=== PATIENT | male | born 1945 | race Caucasian/White ===

== ENCOUNTER → 2017-07-10 10:22 | Outpatient (CLI) | payer MEDICARE, SELFPAY ==
--- NOTE | 2017-07-10 | LES_PTH ---
PATIENT: TIFFANIE AGUILAR LOC: [place] U#:[id number] AGE/SX: 80/M ROOM: RE07/10/[address]: Dr. Chet Hernández MD : 1945 BED: DIS: SPEC #: [id number] RECD: 07/11/17 09:56 STATUS: BRET CHERI #: [id number] JUAN ANTONIO: 07/10/17 00:[address]: Chet Hernández DEPT: SURGICAL PATHOLOGY RECD BY: Viet Brunson Tissues: Skin of arm Procedures: Surgery Specimen Level IV HEADER OPERATION: Excision nevus PRE-OP DIAGNOSIS: Rule out melanoma TISSUE SUBMITTED: Left arm MICROSCOPIC DIAGNOSIS Skin lesion of left arm, biopsy: Pigmented seborrheic keratosis. Solar elastosis. No evidence of malignancy. AM:casey 07/12/17 COMMENT Case has been reviewed in consultation with Dr. Sims who concurs with the above diagnosis. IDC:SJ MICROSCOPIC DESCRIPTION Slides are reviewed. GROSS DESCRIPTION Received in fixative is one container labeled with the patient's name and designated left arm. The specimen consists of a light forbes excised skin fragment measuring 0.5 x 0.5 x 0.3 cm. The specimen is inked, bisected and totally submitted in one cassette. / AM:casey 07/11/17 TC:3 [facility]: [id number]
== END ==
PROVIDERS: Family Provider Family Medicine; PCP Family Medicine; Visit Provider Family Medicine
DX: L82.1 Other seborrheic keratosis (principal); L57.8 Other skin changes due to chronic exposure to nonionizing radiation
CPT/HCPCS: 88305

== ENCOUNTER 2017-08-01 13:00 | Outpatient (RCR) | payer MEDICARE, SELFPAY ==
--- NOTE | 2017-06-27 12:46 | HP.PTEVAL_ITS ---
Patient's Visit Information TIFFANIE AGUILAR is a 72 year old M referred to Physical Therapy by Chet WEINSTEIN with a diagnosis of cervical DDD. Date of Evaluation: 06/27/17 Physical Therapist: Amador Hackett - Visit Plan Frequency: 1-2x /Week Duration: 4 Weeks Plan: Start with SNAGs cervical motions, gental cervical distraction, bilateral UT and levator scapulea stretching. Add in pec stretching progressing to postural strengthening. May use US/IFC for pain management PRN. - Subjective Subjective: Pt. is here today for his initial evaluation with diagnosis of cervical DDD. He reports having popping symptoms in neck with pain radiating down his R arm to fingers at times. Pt. reports popping in his neck with cervical rotation, but has increased pain with lying down his R UE to finger level intermittently. Pt. denies N/T currently and no sudden weakness. Pt. reports no mechanism of injury, but as gradual onset over the last 3 months. Pt. reprots no pain currently, but has difficulty with cervical rotation, it pops a lot. 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 He is hopeful to improve ROM and decrease occassional soreness allowing his to complete household and recreational activities with decreased symptoms. - Pain cervical spine Pain Intensity (Out of 10): 1 Pain Intensity Range: 0, 4 R UE Pain Intensity (Out of 10): 0 Pain Intensity Range: 0, 6 Comment: while sleeping, wakes him up at night - Objective POSTURE: Pt. has FH positioning, rounded shoulders, protracted scapulea bilaterally. He also has increased lower cervical felxion with increarsed upper cervical extension. PALPATION: Pt. has mild tenderness at LUT and L levator scapulea, no pain on R side of cervical spine. Pt. has no pain at bilateral sub occipitals or cervical spine musculature. Pt. did have mild increase NW symptoms with PA to C4-C7. NEUROLOGICAL: Pt. has no changes in sensation to light and sharp touch throughotu bilateral UEs. Pt. has 2+ biceps, triceps and brachial radialis DTR bilaterally. Pt. had negative upper limb tension testing as well. ROM: Pt. has full B shoulder ROM without increase in cervical spine symptoms. CERVICAL SPINE: flexion nil loss NE, ext mod loss stiffness, rotation R min loss increase NW on L side, rotation L mod loss increase L on L side. SB R mod loss increase NW on L side, SB R nil loss NE. MMT- Pt. has full bilateral shoulder strength without increase in symptoms. CERVICAL ISOMETRICS: Pt. has normal cervical spine isometrics without increase in symptoms. - Special Tests C/S Radiculapathy - Left Upper limb tension test: Negative C/S Radiculapathy - Right Upper limb tension test: Negative C/S Radiculapathy - Left Spurlings: Negative C/S Radiculapathy - Right Spurlings: Negative C/S Radiculapathy - Left Cervical distraction: Negative C/S Radiculapathy - Right Cervical distraction: Negative C/S Radiculapathy - Left Relief test: Negative C/S Radiculapathy - Right Relief test: Negative C/S Radiculapathy - Valsalva: Negative Sharp John: Negative Vertebral Artery Test: Negative Alar Ligament Test: Negative Cervical Sitting: Protrusion - Mechanical Response: No effect Cervical Sitting: Protrusion - Symptoms During Testing: No effect Cervical Sitting: Protrusion - Symptoms After Testing: No effect Cervical Sitting: Retraction - Mechanical Response: No effect Cervical Sitting: Retraction - Symptoms During Testing: No effect Cervical Sitting: Retraction - Symptoms After Testing: No worse Cervical Sitting: Retraction-Extension - Mechanical Response: No effect Cerv Sitting: Retraction-Extension - Symptoms During Testing: Increases Cerv Sitting: Retraction-Extension - Symptoms After Testing: No worse Cervical Sitting: Sidebend Right - Mechanical Response: No effect Cervical Sitting: Sidebend Right - Symptoms During Testing: Increases Cervical Sitting: Sidebend Right - Symptoms After Testing: No worse Cervical Sitting: Sidebend Left - Mechanical Response: No effect Cervical Sitting: Sidebend Left - Symptoms During Testing: No effect Cervical Sitting: Sidebend Left - Symptoms After Testing: No effect Cervical Sitting: Rotation Right - Mechanical Response: No effect Cervical Sitting: Rotation Right - Symptoms During Testing: Increases Cervical Sitting: Rotation Right - Symptoms After Testing: No worse Cervical Sitting: Rotation Left - Mechanical Response: No effect Cervical Sitting: Rotation Left - Symptoms During Testing: No effect Cervical Sitting: Rotation Left - Symptoms After Testing: No effect Cervical Sitting: Flexion - Mechanical Response: No effect Cervical Sitting: Flexion - Symptoms During Testing: No effect Cervical Sitting: Flexion - Symptoms After Testing: No effect - Goals Goal 1:: Pt. to be I with HEP. Goal 2:: Pt. to have no issues with sleeping allowing for increased quality of life. Goal Time Frame: 4-6 Weeks Goal 3:: Pt. to have increased cervical ROM by 25% in all directions without increase in symptoms. Goal Time Frame: 4-6 Weeks Goal 4:: Pt. to resume chopping wood and driving without limitations or increase in symptoms. Goal Time Frame: 4-6 Weeks Goal 5:: Pt. to maintain improved posture throughout therapy session indicating increased postural awareness. Goal Time Frame: 4-6 Weeks - Rehabilitation Potential Physical Therapy Diagnosis: Pt. has signs and symptoms consistent with cervical DDD resulting in cervical hypombility and crepitus. He reports having R UE radiating pain, but was unable to reproduce this date. He would benefit from PT to increase ROM, decrease pain and improve posture in order to reduce stress applied to cervical spine with all functional mobility. Rehabilitation Potential: Good - Anticipated Interventions Patient/Client Instruction: Educate patient on: Condition, Plan of Care, Risk Factors, Benefits of Fitness Program For the Purpose of:: To improve decision making, To facilitate caregiver knowledge, To improve self management, To prevent re-injury, To improve ability to perform tasks related to life management, To improve tolerance to ADL's Therapeutic Exercise to Include: Strength training, Power training, Postural training, Flexibilty training, Passive ROM, Active ROM, Eddie Exercises, Scapular Strength/Stabilization For the Purpose of:: To decrease pain, To increase ROM, To improve nutrient delivery to tissue, To increase oxygenation perfusion, To improve muscle performance and motor function, To increase tolerance to activity/condition/ position, To improve health of tissue, To decrease soft tissue restriction, To increase flexibility/ROM Manual Therapy Techniques to Include: Mobilization, Passive ROM, Functional dry needling, Soft tissue mobilization For the Purpose of:: To decrease pain, To increase ROM, To improve nutrient delivery to tissue, To increase oxygenation perfusion, To improve muscle performance and motor function, To improve ability to perform ADL's, To improve health of tissue, To decrease soft tissue restriction, To increase flexibility/ ROM IF ES: Yes Cryotherapy (ice pack, ice massage): Yes Ultrasound (thermal/non thermal): Yes For the Purpose of:: To decrease pain, To increase ROM, To improve nutrient delivery to tissue, To increase oxygenation perfusion, To improve muscle performance and motor function, To improve ability to perform ADL's Thank you for the opportunity to evaluate your patient. For Medicare and Medicare HMO plans, please review the plan of care and approve it. It will need to be FAXED BACK to us at [phone] for Medicare purposes. Please let me know if there are questions or concerns regarding this plan of care. Physician Signature: Date:
--- NOTE | 2017-08-02 13:21 | HP.PTDCSUM ---
HP - PT D/C Summary It has been my pleasure to treat TIFFANIE AGUILAR under orders from DR.CRANNE Kofi for the diagnosis of cervical DDD for a total of 5 visit(s). Discharge Date: 08/01/17 Please see the following information for a summary of their discharge status. - Subjective Subjective: Pt. reports I am doing prett well. Pt. reports that his neck has been moving very well and that as long as he stays active his symptoms are minimal. Pt. reports being HEP compliant. - Pain cervical spine Pain Intensity (Out of 10): 0 R UE Pain Intensity (Out of 10): 0 - Overall Improvement % Improvement: 95 - Objective Objective/Function: Pt. tolerated all PT without adverse reaction. Pt. has progressed as expected. CERVICAL ROM: flexion- nil loss NE, rotation R nil loss NE, rotation L min/nil loss NE, ext min/nil loss NE. Shoulders- full without increase in symptoms. Pt. is back to sleeping and chopping wood without issues. Pt. is able to maintain improved posture throughout therapy and is able to complete while completing UE exercises. Pt. reports no pain throughout therapy session. - Goals Goal 1:: Pt. to be I with HEP. Goal Progress: Goal Met Goal 2:: Pt. to have no issues with sleeping allowing for increased quality of life. Goal Progress: Goal Met Goal 3:: Pt. to have increased cervical ROM by 25% in all directions without increase in symptoms. Goal Progress: Goal Met Goal 4:: Pt. to resume chopping wood and driving without limitations or increase in symptoms. Goal Progress: Goal Met Goal 5:: Pt. to maintain improved posture throughout therapy session indicating increased postural awareness. Goal Progress: Goal Met - Plan Plan: Pt. to be DC to HEP at this point in time. - D/C Information Discharge Comments: Pt. was treated with ultrasound, ROM, postural strengthening. He made progresss as expected. He was no longer having pain at time of DC. He does have slight limited cervical rotation to the left, but is progressing. Pt. is independent with postural strengthening and cervical ROM for his HEP. Pt. will be DC from PT at this point in time. If there are questions or concerns regarding this patient's physical therapy, please feel free to call me at [phone]. Thank you for the referral of this patient. Sincerely, Amador Hackett
== END 2017-08-01 19:00 | disposition home or self-care (01) ==
LOC: PT 13:00
PROVIDERS: Family Provider Family Medicine; PCP Family Medicine; Visit Provider Family Medicine
DX: M50.30 Other cervical disc degeneration, unspecified cervical region (principal)
CPT/HCPCS: 97035; 97110; 97140; 97161

== ENCOUNTER → 2018-09-24 | Outpatient (CLI) | payer MEDICARE, SELFPAY ==
[2016-05-11 10:25] VITALS: BMI 23.8
== END | disposition home or self-care (01) ==
LOC: LABSPEC 16:00
PROVIDERS: Family Provider Family Medicine; PCP Family Medicine; Visit Provider Nurse Practitioner Family
DX: N39.0 Urinary tract infection, site not specified (principal)
CPT/HCPCS: 87086; 87088; 87186

== ENCOUNTER → 2019-03-14 11:55 | Outpatient (CLI) | payer MEDICARE, SELFPAY ==
[2016-05-11 10:25] VITALS: BMI 23.8
[2019-03-14 15:35] LABS: Hematocrit 44.4 % (40-54); Hemoglobin 14.6 g/dL (13.0-16.5); Mean Corp Hgb Conc 32.9 g/dL (32-36); Mean Corpuscular Hgb 30.9 pg (27.0-32.0); Mean Corpuscular Volume 93.9 fL (80-94); Mean Platelet Vol. 10.4 fl (6.2-12.0); Platelet Count 206 K/mm3 (150-450); RBC Distribution Width CV 12.7 % (11.6-14.6); RBC Distribution Width SD 44.2 fl (35.1-43.9); Red Blood Count 4.73 M/mm3 (4.6-6.2); White Blood Count 5.6 K/mm3 (4.4-11.0)
[2019-03-14 16:00] LABS: ALB/GLOB Ratio 1.1 RATIO (0.9-2.4); AST(SGOT) 15 U/L (15-37); Alanine Aminotransfer ALT/SGPT 24 U/L (16-61); Albumin, Serum 3.9 g/dL (3.2-5.0); Alkaline Phosphatase 75 U/L (45-117); Anion Gap 4 (5-15); BUN 15 mg/dL (7-18); BUN/Creat Ratio 13.6 RATIO (10-20); Calcium,Total 8.9 mg/dL (8.5-10.1); Chloride 107 mmol/L (98-107); EST Glomerular Filtration Rate 70 mL/min (>60); Est Glom Filt Rate - Afr Amer 84 mL/min (>60); Globulin 3.5 g/dL (2.2-4.2); Glucose 87 mg/dL (74-106); PSA,Total - Annual Screen 5.17 ng/mL (0.00-4.00); Potassium 4.2 mmol/L (3.5-5.1); Protein, Total 7.4 g/dL (6.4-8.2); Sodium Level 139 mmol/L (136-145); Thyroid Stim Hormone (TSH) 1.03 uIU/mL (0.358-3.74)
== END ==
PROVIDERS: Family Provider Family Medicine; PCP Family Medicine; Referring Provider Family Medicine; Visit Provider Family Medicine
DX: I48.91 Unspecified atrial fibrillation (principal); N40.0 Benign prostatic hyperplasia without lower urinary tract symptoms; Z12.5 Encounter for screening for malignant neoplasm of prostate
CPT/HCPCS: 36415; 80053; 84153; 84443; 85027; G0103

== ENCOUNTER → 2019-09-19 16:45 | Outpatient (CLI) | payer MEDICARE, SELFPAY ==
[2019-09-21 14:04] LABS: PSA, Free 1.14 ng/mL; PSA, Free % 21.9 % (.); PSA, Total Ultrasensitive 5.2 ng/mL (0.0-4.0)
== END ==
PROVIDERS: PCP Family Medicine; Referring Provider Family Medicine; Visit Provider Family Medicine
DX: N40.0 Benign prostatic hyperplasia without lower urinary tract symptoms (principal)
CPT/HCPCS: 36415; 84153; 84154

== ENCOUNTER → 2020-03-16 09:13 | Outpatient (CLI) | payer MEDICARE, SELFPAY ==
[2016-05-11 10:25] VITALS: BMI 23.8
[2020-03-16 10:37] LABS: Anion Gap 7 (5-15); BUN 14 mg/dL (7-18); BUN/Creat Ratio 13.1 RATIO (10-20); Chloride 105 mmol/L (98-107); Cholesterol 216 mg/dL (200); Creatinine, Serum 1.07 mg/dL (0.70-1.30); EST Glomerular Filtration Rate 72 mL/min (>60); Est Glom Filt Rate - Afr Amer 87 mL/min (>60); Glucose 91 mg/dL (74-106); High Density Lipoprotein 71 mg/dL; PSA,Total- Diagnostic 4.37 ng/mL (0.0-4.0); Potassium 4.2 mmol/L (3.5-5.1); Sodium Level 140 mmol/L (136-145); Thyroid Stim Hormone (TSH) 0.96 uIU/mL (0.358-3.74); Triglycerides 74 mg/dL; Very Low Density Lipoprotein 15 mg/dL (5-40)
== END ==
PROVIDERS: PCP Family Medicine; Visit Provider Family Medicine
DX: I48.91 Unspecified atrial fibrillation (principal); R97.20 Elevated prostate specific antigen [PSA]
CPT/HCPCS: 36415; 80048; 80061; 84153; 84443

== ENCOUNTER → 2021-03-23 10:24 | Outpatient (CLI) | payer MEDICARE, SELFPAY ==
[2021-03-23 12:33] LABS: Anion Gap 8 (5-15); BUN 17 mg/dL (7-18); BUN/Creat Ratio 15.3 RATIO (10-20); Calcium,Total 8.6 mg/dL (8.5-10.1); Chloride 107 mmol/L (98-107); Cholesterol 223 mg/dL (200); Creatinine, Serum 1.11 mg/dL (0.70-1.30); EST Glomerular Filtration Rate 69 mL/min (>60); Est Glom Filt Rate - Afr Amer 83 mL/min (>60); Glucose 98 mg/dL (74-106); High Density Lipoprotein 54 mg/dL; PSA,Total - Annual Screen 3.59 ng/mL (0.00-4.00); Potassium 4.1 mmol/L (3.5-5.1); Sodium Level 140 mmol/L (136-145); Triglycerides 74 mg/dL; Very Low Density Lipoprotein 15 mg/dL (5-40)
== END ==
PROVIDERS: PCP Family Medicine; Referring Provider Family Medicine; Visit Provider Family Medicine
DX: I48.91 Unspecified atrial fibrillation (principal); R97.20 Elevated prostate specific antigen [PSA]; Z13.220 Encounter for screening for lipoid disorders
CPT/HCPCS: 36415; 80048; 80061; 84153; G0103

== ENCOUNTER → 2021-05-26 10:16 | Outpatient (CLI) | payer MEDICARE, SELFPAY ==
[2021-05-26 12:40] LABS: Cholesterol 129 mg/dL (200); High Density Lipoprotein 51 mg/dL; Triglycerides 52 mg/dL; Very Low Density Lipoprotein 10 mg/dL (5-40)
== END ==
PROVIDERS: PCP Family Medicine; Referring Provider Family Medicine; Visit Provider Family Medicine
DX: E78.5 Hyperlipidemia, unspecified (principal)
CPT/HCPCS: 36415; 80061

== ENCOUNTER → 2022-03-28 | Outpatient (CLI) | payer MEDICARE, SELFPAY ==
[2022-03-28 12:38] LABS: ALB/GLOB Ratio 1.2 RATIO (0.9-2.4); AST(SGOT) 16 U/L (15-37); Alanine Aminotransfer ALT/SGPT 21 U/L (16-61); Albumin, Serum 3.5 g/dL (3.2-5.0); Alkaline Phosphatase 66 U/L (45-117); Anion Gap 9 (5-15); BUN 16 mg/dL (7-18); BUN/Creat Ratio 15.7 RATIO (10-20); Calcium,Total 8.8 mg/dL (8.5-10.1); Chloride 107 mmol/L (98-107); Cholesterol 122 mg/dL (200); Creatinine, Serum 1.02 mg/dL (0.70-1.30); EST Glomerular Filtration Rate 76 mL/min (>60); Est Glom Filt Rate - Afr Amer 91 mL/min (>60); Glucose 92 mg/dL (74-106); High Density Lipoprotein 55 mg/dL; PSA,Total- Diagnostic 3.04 ng/mL (0.0-4.0); Potassium 3.9 mmol/L (3.5-5.1); Protein, Total 6.5 g/dL (6.4-8.2); Sodium Level 139 mmol/L (136-145); Triglycerides 43 mg/dL; Very Low Density Lipoprotein 9 mg/dL (5-40)
== END | disposition home or self-care (01) ==
LOC: MFPLAB 09:38
PROVIDERS: PCP Family Medicine; Visit Provider Family Medicine
DX: E78.5 Hyperlipidemia, unspecified (principal); R97.20 Elevated prostate specific antigen [PSA]
CPT/HCPCS: 36415; 80053; 80061; 84153

== ENCOUNTER 2022-06-06 09:02 | Outpatient (CLI) | payer MEDICARE, SELFPAY ==
[2022-06-06 10:29] LABS: Absolute Lymphocyte Count 1.24 X10^3/uL (0.83-4.51); Absolute Neutrophil Count 3.3 X10^3/uL (2.0-7.7); Basophil# 0.04 X10^3/uL; Basophil% 0.8 % (0-1); Eosinophil# 0.15 X10^3/uL; Eosinophils% 2.8 % (0-5); Hematocrit 43.6 % (40-54); Hemoglobin 14.6 g/dL (13.0-16.5); Lymphocyte # 1.24 X10^3/ul (0.83-4.51); Lymphocyte % 23.3 % (19-41); Mean Corp Hgb Conc 33.5 g/dL (32-36); Mean Corpuscular Volume 95.6 fL (80-94); Mean Platelet Vol. 10.9 fl (6.2-12.0); Monocyte# 0.54 X10^3/uL; Monocyte% 10.1 % (0-10); NRBC Flagged by Analyzer 0 % (0-5); Neutrophil # 3.34 X10^3/uL (2.7-7.7); Neutrophil % 62.6 % (47-70); Platelet Count 193 K/mm3 (150-450); RBC Distribution Width CV 12.5 % (11.6-14.6); RBC Distribution Width SD 44.1 fl (35.1-43.9); Red Blood Count 4.56 M/mm3 (4.6-6.2); White Blood Count 5.3 K/mm3 (4.4-11.0)
[2022-06-06 10:36] LABS: Vitamin D,25 Hydroxy 18.6 ng/mL
[2022-06-06 10:37] LABS: Erythrocyte Sedimentation Rate 7 mm/hr (0-20)
[2022-06-06 11:20] LABS: ALB/GLOB Ratio 1.3 RATIO (0.9-2.4); AST(SGOT) 16 U/L (15-37); Alanine Aminotransfer ALT/SGPT 22 U/L (16-61); Albumin, Serum 3.8 g/dL (3.2-5.0); Alkaline Phosphatase 74 U/L (45-117); Anion Gap 10 (5-15); BUN 18 mg/dL (7-18); BUN/Creat Ratio 17.5 RATIO (10-20); Calcium,Total 8.8 mg/dL (8.5-10.1); Chloride 106 mmol/L (98-107); Creatinine, Serum 1.03 mg/dL (0.70-1.30); EST Glomerular Filtration Rate 75 mL/min (>60); Est Glom Filt Rate - Afr Amer 90 mL/min (>60); Glucose 95 mg/dL (74-106); Potassium 4.2 mmol/L (3.5-5.1); Prealbumin 20.8 mg/dL (20.0-40.0); Protein, Total 6.8 g/dL (6.4-8.2); Sodium Level 140 mmol/L (136-145); Thyroid Stim Hormone (TSH) 0.88 uIU/mL (0.358-3.74)
== END 2022-06-06 23:59 | disposition home or self-care (01) ==
LOC: MFPLAB 09:03
PROVIDERS: PCP Family Medicine; Visit Provider Family Medicine
DX: R63.4 Abnormal weight loss (principal); E55.9 Vitamin D deficiency, unspecified
CPT/HCPCS: 80053; 82306; 84134; 84443; 85025; 85652

== ENCOUNTER → 2023-03-30 | Outpatient (CLI) | payer MEDICARE, SELFPAY ==
[2023-03-30 10:32] LABS: ALB/GLOB Ratio 1.1 RATIO (0.9-2.4); AST(SGOT) 14 U/L (15-37); Alanine Aminotransfer ALT/SGPT 22 U/L (16-61); Albumin, Serum 3.6 g/dL (3.2-5.0); Alkaline Phosphatase 66 U/L (45-117); Anion Gap 6 (5-15); BUN 19 mg/dL (7-18); BUN/Creat Ratio 18.3 RATIO (10-20); Calcium,Total 8.9 mg/dL (8.5-10.1); Chloride 108 mmol/L (98-107); Cholesterol 140 mg/dL (200); Creatinine, Serum 1.04 mg/dL (0.70-1.30); EST Glomerular Filtration Rate 74 mL/min (>60); Est Glom Filt Rate - Afr Amer 89 mL/min (>60); Globulin 3.3 g/dL (2.2-4.2); Glucose 96 mg/dL (74-106); High Density Lipoprotein 57 mg/dL; PSA,Total - Annual Screen 3.75 ng/mL (0.00-4.00); Potassium 4.1 mmol/L (3.5-5.1); Protein, Total 6.9 g/dL (6.4-8.2); Sodium Level 139 mmol/L (136-145); Thyroid Stim Hormone (TSH) 1.35 uIU/mL (0.358-3.74); Triglycerides 56 mg/dL; Very Low Density Lipoprotein 11 mg/dL (5-40)
[2023-03-30 10:35] LABS: Vitamin D,25 Hydroxy 49.6 ng/mL
== END | disposition home or self-care (01) ==
LOC: MFPLAB 08:58
PROVIDERS: PCP Family Medicine; Visit Provider Family Medicine
DX: I48.91 Unspecified atrial fibrillation (principal); E78.5 Hyperlipidemia, unspecified; E55.9 Vitamin D deficiency, unspecified; N40.0 Benign prostatic hyperplasia without lower urinary tract symptoms; Z12.5 Encounter for screening for malignant neoplasm of prostate
CPT/HCPCS: 36415; 80053; 80061; 82306; 84153; 84443; G0103

== ENCOUNTER → 2024-04-02 | Outpatient (CLI) | payer MEDICARE, SELFPAY ==
[2024-04-02 12:35] LABS: Anion Gap 5 (5-15); BUN 15 mg/dL (7-18); BUN/Creat Ratio 15.9 RATIO (10-20); Calcium,Total 8.9 mg/dL (8.5-10.1); Chloride 110 mmol/L (98-107); Cholesterol 135 mg/dL (200); Creatinine, Serum 0.94 mg/dL (0.70-1.30); EST Glomerular Filtration Rate 82 mL/min (>60); Est Glom Filt Rate - Afr Amer 99 mL/min (>60); Glucose 89 mg/dL (74-106); High Density Lipoprotein 60 mg/dL; PSA,Total- Diagnostic 3.86 ng/mL (0.0-4.0); Potassium 4.4 mmol/L (3.5-5.1); Sodium Level 140 mmol/L (136-145); Thyroid Stim Hormone (TSH) 0.973 uIU/mL (0.358-3.740); Triglycerides 40 mg/dL; Very Low Density Lipoprotein 8 mg/dL (5-40)
[2024-04-02 16:16] LABS: Vitamin D,25 Hydroxy 37.8 ng/mL
== END | disposition home or self-care (01) ==
LOC: MFPLAB 10:03
PROVIDERS: PCP Family Medicine; Visit Provider Family Medicine
DX: I48.91 Unspecified atrial fibrillation (principal); R97.20 Elevated prostate specific antigen [PSA]; E55.9 Vitamin D deficiency, unspecified
CPT/HCPCS: 36415; 80048; 80061; 82306; 84153; 84443

== ENCOUNTER → 2024-11-04 | Outpatient (CLI) | payer MEDICARE, SELFPAY ==
[2024-11-04 11:02] LABS: PSA,Total- Diagnostic 4.17 ng/mL (0.00-4.00)
== END | disposition home or self-care (01) ==
LOC: LAB 09:46
PROVIDERS: PCP Family Medicine; Referring Provider Urology; Visit Provider Urology
DX: R97.20 Elevated prostate specific antigen [PSA] (principal)
CPT/HCPCS: 36415; 84153

== ENCOUNTER → 2025-03-31 | Outpatient (CLI) | payer MEDICARE, SELFPAY ==
[2025-03-31 12:39] LABS: Hematocrit 42.3 % (40-54); Hemoglobin 13.8 g/dL (13.0-16.5); Mean Corp Hgb Conc 32.6 g/dL (32-36); Mean Corpuscular Volume 94.6 fL (80-94); Mean Platelet Vol. 10.6 fl (6.2-12.0); Platelet Count 212 K/mm3 (150-450); RBC Distribution Width CV 12.6 % (11.6-14.6); RBC Distribution Width SD 43.8 fl (35.1-43.9); Red Blood Count 4.47 M/mm3 (4.6-6.2); White Blood Count 5.3 K/mm3 (4.4-11.0)
[2025-03-31 12:54] LABS: AST(SGOT) 17 U/L (<=37); Alanine Aminotransfer ALT/SGPT 14 U/L (<=46); Albumin, Serum 4.1 g/dL (3.4-4.8); Alkaline Phosphatase 71 U/L (40-129); Anion Gap 7 (5-15); BUN 15 mg/dL (4-19); BUN/Creat Ratio 13.9 RATIO (10-20); Calcium,Total 9.2 mg/dL (7.6-11.0); Carbon Dioxide 26.3 mmol/L (21.0-32.0); Chloride 105 mmol/L (98-108); Globulin 2.5 g/dL (2.2-4.2); Glucose 90 mg/dL (70-99); Magnesium 2.5 mg/dL (1.5-2.2); Potassium 4.5 mmol/L (3.3-5.1)
--- OUTSIDE RECORDS SUMMARY | 2025-03-31 13:19 | XMS RPT_ITS | CCD ---
Author Organization [facility] Care Team Providers Care Securities Teller Name Role Phone Betty MONTES, Dr. Rosenberg Primary Care Provider Aline MONTES, Dr. Flaquito Ashraf Attending Provider 1( [phone] Aline MONTES, Dr. Flaquito Ashraf Referring Provider 1( [phone] Chet Hernández Attending Unavailable Chet Hernández Primary Care Unavailable Flaquito Mireles Attending Unavailable Flaquito Mireles Referring Unavailable Chet Hernández Primary Care Unavailable Medications Current Medications Medication Drug Class(es) Dates Sig (Normalized) Sig (Original) acetaminophen 325 mg / oxyCODONE hydrochloride 5 mg oral tablet (3 sources) Opioid Agonist Start: 05-11-2016 Oxycodone-Acetamin ophen 1 TABLET tablet Active 1 - 2 {tbl} PO EVERY 4 HOURS NEEDED as needed for Pain 40 May 11, 2016 1:00am Start: 05-11-2016 take 1 tablet by cong th every four hours as needed Oxycodone-Acetaminophen Active 1 - 2 TABLET PO EVERY 4 HOURS NEEDED 40 May 11, 2016 12:00am aspirin 81 mg delayed release oral tablet (3 sources) Platelet Aggregation Inhibitor, Nonsteroidal Anti-inflammatory Drug Start: 05-10-2016 take 1 tablet by mouth once daily Aspirin 81 MG tablet Active 81 mg PO DAILY@0800 May 10, 2016 1:00am flecainide acetate 100 mg oral tablet (3 sources) Antiarrhythmic Start: 05-10-2016 take 1 tablet by mouth twice daily Flecainide 100 MG tablet Active 100 mg PO TWICE A DAY May 10, 2016 1:00am Problems Problem Classification Problem Date Documented Da te Episodic/Chronic Abdominal hernia (3 sources) Bilateral inguinal hernia; Translations: [Bilateral inguinal hernia, without obstruction or gangrene, not specified as recurrent] 05-11-2016 Episodic Cardiac dysrhythmias (1 source) Unspecified atrial fibrillation; Translations: [Unspecified atrial fibrillation] Onset: 04-24-2024 Chronic Other screening for suspected conditions (not mental disorders or infectious disease) (1 source) Elevated prostate specific antigen [PSA]; Translations: [Elevated prostate specific antigen [PSA]] Onset: 11-08-2024 Episodic Results Test Name Value Interpretation Reference Range Facility PSA,Total- Diagnosticon 06-0 PSA, DIAGNOSTIC 4.17 ng/mL High 0.00-4.00 [facility] Comment on above: Result Comment: This test was performed using the [employer] tPSA method. Measured values of a patient??sample can vary depending on the testing procedure used. PSA values determined on patient samples by different testing procedures cannot be used interchangeably. If there is a change in PSA assays while monitoring therapy, sequential testing should be performed to confirm baseline values. Performed By: #### L 501.9940 #### [facility] [address] [place], [place], [id number] Basic Metabolic Profile (BMP )on 04-02-2024 BUN/CRE 15.9 RATIO Normal 10-20 [facility] Comment on above: Order Comment: Order Date: 04/02/24 Order Info: 0667-1 - BMP Order Info: [id number] - LIPID Order Info: [id number] - TSH Order Info: [id number] - PSAD Performed By: #### L 501.9520, L500.4100, L500.2500, L506.1000, L501.9940 #### [facility] [address] [place], [address] CA,Total 8.9 mg/dL Normal 8.5-10.1 [facility] Comment on above: Order Comment: Order Date: 04/02/24 Order Info: [id number] - BMP Order Info: [id number] - LIPID Order Info: 3013 - TSH Order Info: [id number] - PSAD Performed By: #### L 501.9520, L500.4100, L500.2500, L506.1000, L501.9940 #### [facility] [address] [place], [address] Chloride [Moles/Vol] 110 mmol/L High 98-107 [facility] Comment on above: Order Comment: Order Date: 04/02/24 Order Info: 666-05 - BMP Order Info: [id number] - LIPID Order Info: 3 - TSH Order Info: 782-05 - PSAD Performed By: #### L 501.9520, L500.4100, L500.2500, L506.1000, L501.9940 #### [facility] [address] [place], [address] CO2 [Moles/Vol] 25.0 mmol/L Normal 21.0-32.0 [facility] Comment on above: Order Comment: Order Date: 04/02/24 Order Info: 666-05 - BMP Order Info: - LIPID Order Info: [id number] - TSH Order Info: 782-05 - PSAD Performed By: #### L 501.9520, L500.4100, L500.2500, L506.1000, L501.9940 #### [facility] [address] [place], [address] Creatinine [Mass/Vol] 0.94 mg/dL Normal 0.70-1.30 [facility] Comment on above: Order Comment: Order Date: 04/02/24 Order Info: 666-05 - BMP Order Info: [id number] - LIPID Order Info: 3015-07 - TSH Order Info: 782-05 - PSAD Result Comment: The validity of the calculated GFR GFRAA in patients over 70 years has not been determined. Clinical correlation is essential. Performed By: #### L 501.9520, L500.4100, L500.2500, L506.1000, L501.9940 #### [facility] [address] [place], [address] EST GFR - AA 99 mL/min Normal >60 [facility] Comment on above: Order Comment: Order Date: 04/02/24 Order Info: 666-05 - BMP Order Info: - LIPID Order Info: 3 - TSH Order Info: 782- - PSAD Result Comment: Afri can Malawian GFR Calc Performed By: #### L 501.9520, L500.4100, L500.2500, L506.1000, L501.9940 #### [facility] [address] [place], [address] GAP 5 Normal 5-15 [facility] Comment on above: Order Comment: Order Date: 04/02/24 Order Info: 666-05 - BMP Order Info: - LIPID Order Info: [id number] - TSH Order Info: 782-05 - PSAD Performed By: #### L 501.9520, L500.4100, L500.2500, L506.1000, L501.9940 #### [facility] [address] [place], [address] GFR/1.73 sq M.predicted among non-blacks MDRD (S/P/Bld) [Vol rate/Area] 82 mL/min/{1.73_m2} Normal >60 [facility] Comment on above: Order Comment: Order Date: 04/02/24 Order Info: 666-05 - BMP Order Info: - LIPID Order Info: [id number] - TSH Order Info: 782- - PSAD Result Comment: Non- GFR Calc Performed By: #### L 501.9520, L500.4100, L500.2500, L506.1000, L501.9940 #### [facility] [address] [place], [address] Glucose [Mass/Vol] 89 mg/dL Normal 74-106 [facility] Comment on above: Order Comment: Order Date: 04/02/24 Order Info: 666-05 - BMP Order Info: - LIPID Order Info: 3 - TSH Order Info: 782- - PSAD Performed By: #### L 501.9520, L500.4100, L500.2500, L506.1000, L501.9940 #### [facility] [address] [place], [address] Potassium [Moles/Vol] 4.4 mmol/L Normal 3.5-5.1 [facility] Comment on above: Order Comment: Order Date: 04/02/24 Order Info: 06- - BMP Order Info: [id number] - LIPID Order Info: 3015-3 - TSH Order Info: 0783-1 - PSAD Performed By: #### L 501.9520, L500.4100, L500.2500, L506.1000, L501.9940 #### [facility] [address] [place], [address] Sodium [Moles/Vol] 140 mmol/L Normal 136-145 [facility] Comment on above: Order Comment: Order Date: 04/02/24 Order Info: 666-05 - BMP Order Info: [id number] - LIPID Order Info: 3 - TSH Order Info: 0783-1 - PSAD Performed By: #### L 501.9520, L500.4100, L500.2500, L506.1000, L501.9940 #### [facility] [address] [place], [address] Urea nitrogen [Mass/Vol] 15 mg/dL Normal 7-18 [facility] Comment on above: Order Comment: Order Date: 04/02/24 Order Info: 06 - BMP Order Info: [id number] - LIPID Order Info: 6-3 - TSH Order Info: 0783-1 - PSAD Performed By: #### L 501.9520, L500.4100, L500.2500, L506.1000, L501.9940 #### [facility] [address] [place], [address] Lipid Profileon 04-02-2024 Cholesterol [Mass/Vol] 135 mg/dL Normal 200 [facility] Comment on above: Order Comment: Order Date: 04/02/24 Order Info: 666-05 - BMP Order Info: - LIPID Order Info: [id number] - TSH Order Info: 782- - PSAD Result Comment: <200 mg/dL Desirable 200-240 mg/dL Borderline >240 mg/dL High Risk Performed By: #### L 501.9520, L500.4100, L500.2500, L506.1000, L501.9940 #### [facility] [address] [place], [address] Cholesterol in HDL [Mass/Vol] 60 mg/dL Normal [facility] Comment on above: Order Comment: Order Date: 04/02/24 Order Info: 666-05 - BMP Order Info: - LIPID Order Info: 3015-07 - TSH Order Info: 782-05 - PSAD Result Comment: The drugs N-Acetylcysteine and Metamizole may falsely depress this assay. Reference Range HDL <40 mg/dL Low HDL Cholesterol HDL >or= 60 mg/dL High HDL Cholesterol Performed By: #### L 501.9520, L500.4100, L500.2500, L506.1000, L501.9940 #### [facility] [address] [place], [address] Cholesterol in LDL [Mass/Vol] 67 mg/dL Normal 0-130 [facility] Comment on above: Order Comment: Order Date: 04/02/24 Order Info: 666-05 - BMP Order Info: - LIPID Order Info: 3015-07 - TSH Order Info: 782-05 - PSAD Performed By: #### L 501.9520, L500.4100, L500.2500, L506.1000, L501.9940 #### [facility] [address] [place], [address] Cholesterol in VLDL [Mass/Vol] 8 mg/dL Normal 5-40 [facility] Comment on above: Order Comment: Order Date: 04/02/24 Order Info: 666-05 - BMP Order Info: - LIPID Order Info: [id number] - TSH Order Info: 782-05 - PSAD Performed By: #### L 501.9520, L500.4100, L500.2500, L506.1000, L501.9940 #### [facility] [address] [place], [address] Triglyceride [Mass/Vol] 40 mg/dL Normal [facility] Comment on above: Order Comment: Order Date: 04/02/24 Order Info: 666-05 - BMP Order Info: [id number] - LIPID Order Info: 3015-07 - TSH Order Info: 782-05 - PSAD Result Comment: The drugs N-Acetylcysteine and Metamizole may falsely depress this assay. Serum Triglycerides Reference Interval Normal <150 mg/dL Borderline high 150 - 199 mg/dL High 200 - 499 mg/dL Very High > or = 500 mg/dL Performed By: #### L 501.9520, L500.4100, L500.2500, L506.1000, L501.9940 #### [facility] [address] [place], [address] PSA,Total- Diagnosticon PSA, DIAGNOSTIC 3.86 ng/mL Normal 0.0-4.0 [facility] Comment on above: Order Comment: Order Date: 04/02/24 Order Info: 666-05 - BMP Order Info: - LIPID Order Info: 3015-07 - TSH Order Info: 782-05 - PSAD Result Comment: This test was performed using the TPSA assay method for the [employer] chemistry system. Values obtained with different assay methods cannot be used interchangably. When changing PSA assays in the course of monitoring a patient, additional sequential testing should be carried out to confirm baseline values. Performed By: #### L 501.9520, L500.4100, L500.2500, L506.1000, L501.9940 #### [facility] [address] [place], [address] Thyroid Stim Hormone (TSH)on 04-02-2024 TSH 0.973 uIU/mL Normal 0.358-3.740 [facility] Comment on above: Order Comment: Order Date: 04/02/24 Order Info: 0667-1 - BMP Order Info: [id number] - LIPID Order Info: 3016-3 - TSH Order Info: 0783-1 - PSAD Performed By: #### L 501.9520, L500.4100, L500.2500, L506.1000, L501.9940 #### [facility] [address] [place], [place], [id number] Vitamin D,25 Hydroxyon 04-02 Vitamin D 25-OH 37.8 ng/mL Normal [facility] Comment on above: Order Comment: Order Date: 04/02/24 Order Info: [id number] - VITD25 Result Comment: Kerri min D 25(OH) Status Range Deficiency <20 ng/mL (50nmol/L) Insufficiency 20 - 30 ng/mL (50 - 75 nmol/L) Sufficiency 30 - 100 ng/mL (75 - 250 nmol/L) Toxicity >100 ng/mL (>250 nmol/L) Performed By: #### L 501.9520, L500.4100, L500.2500, L506.1000, L501.9940 #### [facility] [address] [place], [place], [address] Absolute lymphocyte countOrd ered By: Dr. Hernández on 06-06-2022 Lymphocytes Auto (Unsp spec) [#/Vol] 1.24 10*3/uL 0.83-4.51 [facility] Basophil percentageOrdered B y: Dr. Hernández on 06-06-2022 Basophils/100 WBC (Bld) 0.8 % 0-1 [facility] Bilirubin [Mass/Vol] 0.80 mg/dL 0.20-1.00 [facility] Comment on above: For patients on eltr ombopag therapy, use of Dimension Coldiron TBIL is not recommended. Chloride [Moles/Vol] 106 mmol/L 98-107 [facility] Eosinophils/100 WBC (Bld) 2.8 % 0-5 [facility] Glucose [Mass/Vol] 95 mg/dL 74-106 [facility] Neutrophils (Bld) [#/Vol] 3.3 10*3/uL 2.0-7.7 [facility] Neutrophils/100 WBC (Bld) 62.6 % 47-70 [facility] Potassium [Moles/Vol] 4.2 mmol/L 3.5-5.1 [facility] Protein [Mass/Vol] 6.8 g/dL 6.4-8.2 [facility] Sodium [Moles/Vol] 140 mmol/L 136-145 [facility] WBC (Bld) [#/Vol] 5.3 10*3/uL 4.4-11.0 [facility] Blood erythrocytes count (nu mber/volume)Ordered By: Dr. Hernández on 06-06-2022 RBC (Bld) [#/Vol] 4.56 10*6/uL 4.6-6.2 [facility] Blood hemoglobin measurement (mass/volume)Ordered By: Dr. Hernández on 06-06-2022 Hemoglobin (Bld) [Mass/Vol] 14.6 g/dL 13.0-16.5 [facility] Blood lymphocytes/100 leukoc ytesOrdered By: Dr. Hernández on 06-06-2022 Lymphocytes/100 WBC (Bld) 23.3 % 19-41 [facility] Blood monocytes/100 leukocyt esOrdered By: Dr. Hernández on 06-06-2022 Monocytes/100 WBC (Bld) 10.1 % 0-10 [facility] Blood platelet mean volumeOr dered By: Dr. Hernández on 06-06-2022 Platelet mean volume (Bld) [Entitic vol] 10.9 fL 6.2-12.0 [facility] Determination of erythrocyte mean corpuscular volume (MCV)Ordered By: Dr. Hernández on 06-06-2022 MCV (RBC) [Entitic vol] 95.6 fL 80-94 [facility] Erythrocyte sedimentation ra teOrdered By: Dr. Hernández on 06-06-2022 ESR (Bld) [Velocity] 7 mm/h 0-20 [facility] Hematocrit Auto (Bld) [Volum e fraction]Ordered By: Dr. Hernández on 06-06-2022 Hematocrit (Bld) [Volume fraction] 43.6 % 40-54 [facility] - Chemistry and C hemistry - challengeOrdered By: Dr. Hernández on 06-06-2022 ALP [Catalytic activity/Vol] 74 U/L 45-117 [facility] ALT [Catalytic activity/Vol] 22 U/L 16-61 [facility] CO2 [Moles/Vol] 24.0 mmol/L 21.0-32.0 [facility] Globulin (S) [Mass/Vol] 3.0 g/dL 2.2-4.2 [facility] Urea nitrogen/Creatinine [Mass ratio] 17.5 mg/mg 10-20 [facility] - Hematology and Cell countsOrdered By: Dr. Hernández on 06-06-2022 Erythrocyte distribution width (RBC) [Entitic vol] 44.1 fL 35.1-43.9 [facility] Erythrocyte distribution width (RBC) [Ratio] 12.5 % 11.6-14.6 [facility] Immature granulocytes/100 WBC (Bld) 0.400 % 0.0-0.9 [facility] Comment on above: IG% - Immature Granu locytes (promyelocytes, myelocytes and metamyelocytes) > 1% indicates that a LEFT SHIFT is Present. MCH (RBC) [Entitic mass] 32.0 pg 27.0-32.0 [facility] Nucleated RBC/100 WBC (Bld) [Ratio] 0 % 0-5 [facility] MCHC Auto (RBC) [Mass/Vol]Or dered By: Dr. Hernández on 06-06-2022 MCHC (RBC) [Mass/Vol] 33.5 g/dL 32-36 [facility] No Panel InformationOrdered By: Dr. Hernández on 06-06-2022 Estimated GFR (MDRD) Amer 90 mL/min >60 [facility] Comment on above: GFR Calc Estimated GFR (MDRD) Non-Af Amer 75 mL/min >60 [facility] Comment on above: Non- GFR Calc Thyroid Stimulating Hormone (TSH) 0.88 uIU/mL 0.358-3.74 [facility] Vitamin D 25-Hydroxy 18.6 ng/mL [facility] Comment on above: Vitamin D 25(OH) Sta tus Range Deficiency <20 ng/mL (50nmol/L) Insufficiency 20 - 30 ng/mL (50 - 75 nmol/L) Sufficiency 30 - 100 ng/mL (75 - 250 nmol/L) Toxicity >100 ng/mL (>250 nmol/L) Platelets bldOrdered By: Dr. Hernández on 06-06-2022 Platelets (Bld) [#/Vol] 193 10*3/uL 150-450 [facility] Serum or plasma albumin fransisca urement (mass/volume)Ordered By: Dr. Hernández on 06-06-2022 Albumin [Mass/Vol] 3.8 g/dL 3.2-5.0 [facility] Serum or plasma albumin/glob ulin mass ratioOrdered By: Dr. Hernández on 06-06-2022 Albumin/Globulin [Mass ratio] 1.3 {ratio} 0.9-2.4 [facility] Serum or plasma calcium fransisca urement (mass/volume)Ordered By: Dr. Hernández on 06-06-2022 Calcium [Mass/Vol] 8.8 mg/dL 8.5-10.1 [facility] Serum or plasma creatinine m easurement (mass/volume)Ordered By: Dr. Hernández on 06-06-2022 Creatinine [Mass/Vol] 1.03 mg/dL 0.70-1.30 [facility] Comment on above: The validity of the calculated GFR & GFRAA in patients over 70 years has not been determined. Clinical correlation is essential. Serum or plasma transthyreti n measurement (mass/volume)Ordered By: Dr. Hernández on 06-06-2022 Prealbumin [Mass/Vol] 20.8 mg/dL 20.0-40.0 [facility] Serum or plasma urea nitroge n measurement (mass/volume)Ordered By: Dr. Hernández on 06-06-2022 Urea nitrogen [Mass/Vol] 18 mg/dL 7-18 [facility] Thin prep Papanicolaou smear with manual screeningOrdered By: Dr. Hernández on 06-06-2022 Thin prep Papanicolaou smear with manual screening 16 U/L 15-37 [facility] Thin prep Papanicolaou smear with manual screening 10 5-15 [facility] Basophil percentageOrdered B y: Dr. Hernández on 03-28-2022 Bilirubin [Mass/Vol] 0.90 mg/dL 0.20-1.00 [facility] Comment on above: For patients on eltr ombopag therapy, use of Dimension Coldiron TBIL is not recommended. Chloride [Moles/Vol] 107 mmol/L 98-107 [facility] Cholesterol [Mass/Vol] 122 mg/dL <200 [facility] Comment on above: <200 mg/dL Desirable 200-240 mg/dL Borderline >240 mg/dL High Risk Glucose [Mass/Vol] 92 mg/dL 74-106 [facility] Potassium [Moles/Vol] 3.9 mmol/L 3.5-5.1 [facility] Protein [Mass/Vol] 6.5 g/dL 6.4-8.2 [facility] Sodium [Moles/Vol] 139 mmol/L 136-145 [facility] Triglyceride [Mass/Vol] 43 mg/dL <199 [facility] Comment on above: The drugs N-Acetylcy steine and Metamizole may falsely depress this assay.Serum Triglycerides Reference Interval Normal <150 mg/dL Borderline high 150 - 199 mg/dL High 200 - 499 mg/dL Very High > or = 500 mg/dL Laboratory - Chemistry and C hemistry - challengeOrdered By: Dr. Hernández on 03-28-2022 ALP [Catalytic activity/Vol] 66 U/L 45-117 [facility] ALT [Catalytic activity/Vol] 21 U/L 16-61 [facility] CO2 [Moles/Vol] 23.0 mmol/L 21.0-32.0 [facility] Globulin (S) [Mass/Vol] 3.0 g/dL 2.2-4.2 [facility] Urea nitrogen/Creatinine [Mass ratio] 15.7 mg/mg 10-20 [facility] No Panel InformationOrdered By: Dr. Hernández on 03-28-2022 Estimated GFR (MDRD) Amer 91 mL/min >60 [facility] Comment on above: GFR Calc Estimated GFR (MDRD) Non-Af Amer 76 mL/min >60 [facility] Comment on above: Non- GFR Calc Prostate Specific Antigen Total 3.04 ng/mL 0.0-4.0 [facility] Comment on above: This test was perfor med using the TPSA assay method for [employer] chemistry system. Values obtained with differentassay methods cannot be used interchangably.When changing PSA assays in the course of monitoring apatient, additional sequential testing should be carriedout to confirm baseline values. Serum or plasma albumin fransisca urement (mass/volume)Ordered By: Dr. Hernández on 03-28-2022 Albumin [Mass/Vol] 3.5 g/dL 3.2-5.0 [facility] Serum or plasma albumin/glob ulin mass ratioOrdered By: Dr. Hernández on 03-28-2022 Albumin/Globulin [Mass ratio] 1.2 {ratio} 0.9-2.4 [facility] Serum or plasma calcium fransisca urement (mass/volume)Ordered By: Dr. Hernández on 03-28-2022 Calcium [Mass/Vol] 8.8 mg/dL 8.5-10.1 [facility] Serum or plasma cholesterol in HDL measurement (mass/volume)Ordered By: Dr. Hernández on 03-28-2022 Cholesterol in HDL [Mass/Vol] 55 mg/dL >40 [facility] Comment on above: The drugs N-Acetylcy steine and Metamizole may falsely depress this assay. Reference Range HDL <40 mg/dL Low HDL Cholesterol HDL >or= 60 mg/dL High HDL Cholesterol Serum or plasma cholesterol in VLDL measurement (mass/volume)Ordered By: Dr. Hernández on 03-28-2022 Cholesterol in VLDL [Mass/Vol] 9 mg/dL 5-40 [facility] Serum or plasma creatinine m easurement (mass/volume)Ordered By: Dr. Hernández on 03-28-2022 Creatinine [Mass/Vol] 1.02 mg/dL 0.70-1.30 [facility] Comment on above: The validity of the calculated GFR & GFRAA in patients over 70 years has not been determined. Clinical correlation is essential. Serum or plasma low density lipoprotein (LDL) cholesterol measurement (mass/volume)Ordered By: Dr. Hernández on 03-28-2022 Cholesterol in LDL [Mass/Vol] 58 mg/dL 0-130 [facility] Serum or plasma urea nitroge n measurement (mass/volume)Ordered By: Dr. Hernández on 03-28-2022 Urea nitrogen [Mass/Vol] 16 mg/dL 7-18 [facility] Thin prep Papanicolaou smear with manual screeningOrdered By: Dr. Hernández on 03-28-2022 Thin prep Papanicolaou smear with manual screening 16 U/L 15-37 [facility] Thin prep Papanicolaou smear with manual screening 9 5-15 [facility] Encounters Encounter Date Encounter Type Care Provider Facility Start: 11-04-2024 End: 11-04-[address] Chet Hernández MD Work Phone: [facility] Work Phone: Start: 11-04-2024 End: 11-04-[address] Flaquito Mireles MD -Laboratory Work Phone: Start: 11-04-2024 End: 11-04-2024 ambulatory Flaquito Mireles Facility:[facility] Start: 04-02-2024 End: 04-02-2024 ambulatory Chet Hernández Facility:[facility] Start: 06-06-2022 End: 06-06-2022 ambulatory [facility] Work Phone: Start: 06-06-2022 End: 06-06-2022 [facility] Start: 03-28-2022 End: 03-28-2022 ambulatory [facility] Work Phone: Start: 03-28-2022 End: 03-28-2022 [facility] Procedures Date Procedure Procedure Detail Performing Clinician Start: 11-04-2024 Assay of prostate specific antigen total Dr. Chet Hernández MD Work Phone: Comment on above: This test was perfor med using the [employer] tPSA method. Measured values of a patient sample can vary depending on the testing procedure used. PSA values determined on patient samples by different testing procedures cannot be used interchangeably. If there is a change in PSA assays while monitoring therapy, sequential testing should be performed to confirm baseline values. Payers Date Payer Category Payer Self-pay [id number] 2020 Unknown [id number] Unknown [id number] Unknown [id number] Social History Date Type Detail Facility Start: 05-10-2016 Tobacco smoking stat [facility] Unknown if ever smoked [facility] Start: 1945 Sex Assigned At Male [facility] Start: 05-10-2016 Tobacco smoking stat [facility] Ex-smoker (finding) [facility] Evaluation note Note Date & Type Note Facility Evaluation note No assessment information availa ble [facility] Work Phone: Reason for referral (narrative) Note Date & Type Note Facility Reason for referral (narrative) No reason for referral information available [facility] Work Phone: Advance Directives No Advanced Directives Records Found Advance Directive Response Recorded Date/ Time Advance Directives Yes April 2:26pm Living Will Yes May 10, 2 016 2:26pm Power of [employer] Yes May 10, 2016 2:26pm Advance Directive Response Recorded Date/ Time Advance Directives Yes April 3:26pm Summary Purpose Family History No Family History Records Found Additional Source Comments Goals (unrecognized section and content) Goals may be documented in a n alternate sectionGoals may be documented in an alternate sectionGoals may be documented in an alternate section Care Teams (unrecognized sec tion and content) Team Status: Active Member Role Status Dates Dr. Demetrius Hernández MD Family Provider Active Dr. Demetrius Hernández MD Primary Care Provider Activ e Team Status: Inactive Member Role Status Dates Dr. Demetrius Hernández MD Primary Care Provider, Atte nding Provider Active Team Status: Active Member Role Status Dates Dr. Chet Hernández MD Family Provider Active Dr. Chet Hernández MD Primary Care Provider Acti ve Team Status: Inactive Member Role Status Dates Dr. Chet Hernández MD Primary Care Provider Acti ve Start: November 04, 2024 End: November 04, 2024 Dr. Flaquito Mireles MD Attending Provider Active Start: November 04, 2024 End: November 04, 2024 Dr. Flaquito Mireles MD Referring Provider Active Start: November 04, 2024 End: November 04, 2024 (unrecognized sect ion and content) No Status Records Found INFORMATION SOURCE (unrecogn ized section and content) DATE CREATED AUTHOR 11/11/2024 [facility] FOR RECORDS PERTAINING TO PATIENTS WHO ARE OR HAVE BEEN ENROLLED IN A CHEMICAL DEPENDENCY/SUBSTANCEABUSE PROGRAM, SOME INFORMATION MAY BE OMITTED. This clinical summary was aggregated from multiple sources. Caution should be exercised in using it in the provision of clinical care. This summary normalizes information from multiple sources, and as a consequence, information in this document may materially change the coding, format and clinical context of patient data. In addition, data may be omitted in some cases. CLINICAL DECISIONS SHOULD BE BASED ON THE PRIMARY CLINICAL RECORDS. [employer] provides no warranty or guarantee of the accuracy or completeness of information in this document.
== END | disposition home or self-care (01) ==
LOC: MTLAB 10:39
PROVIDERS: PCP Family Medicine; Referring Provider Family Medicine; Visit Provider Family Medicine
DX: I48.91 Unspecified atrial fibrillation (principal); I95.1 Orthostatic hypotension
CPT/HCPCS: 36415; 80053; 83735; 85027